=== PATIENT | female | born 1965 | race Caucasian/White ===

== ENCOUNTER 2021-05-24 02:21 | Inpatient (IN) ==
[2021-05-24] MEDS ORDERED: NS 0.9% 1000 ml BAG 1,000 ML IV ONE (02:31)
[2021-05-24] MEDS ORDERED: Iodixanol (CONTRAST) 320 MG/ML 100 ML SDV IV ONE (02:32)
[2021-05-24 02:49] LABS: ABS Basophils 0.1 10^3/ul (0-0.2); ABS Eosinophils 0.1 10^3/ul (0-0.6); ABS Lymphocytes 3.2 10^3/ul (1.0-4.8); ABS Monocytes 1.1 10^3/ul (0-0.8); ABS Neutrophils 6.1 10^3/ul (1.5-7.7); Eosinophil % 1.2 %; Hematocrit 41 % (35-47); Hemoglobin 13.7 g/dL (12.0-16.0); Lymphocyte % 30.2 %; Mean Corpuscular HGB Conc 34 g/dL (31-36); Mean Corpuscular Hemoglobin 33 pg (27-31); Mean Corpuscular Volume 98 fL (80-97); Mean Platelet Volume 9.1 fL (7.4-10.4); Platelet Count 287 10^3/uL (150-450); Red Blood Count 4.13 10^6 /uL (3.70-4.87); Red Cell Distribution Width 13 % (10-15); White Blood Count 10.5 10^3/uL (3.5-10.8)
[2021-05-24 02:58] LABS: Activated Partial Thrombo Time 27.9 seconds (26.0-38.0); INR 1.02 (0.86-1.15)
[2021-05-24 03:07] LABS: Albumin 4.5 g/dL (3.2-5.2); Albumin/Globulin Ratio 1.2 (1-3); Calcium 9.4 mg/dL (8.6-10.3); Globulin 3.7 g/dL (2-4); HDL Cholesterol 73.5 mg/dL; Potassium 3.3 mmol/L (3.5-5.0); Total Bilirubin 0.7 mg/dL (0.2-1.0); Total Protein 8.2 g/dL (6.4-8.9); eGFR CKD-EPI 33.3 (>60)
[2021-05-24 03:09] LABS: Troponin I 0.01 ng/mL (<0.03)
[2021-05-24] MEDS ORDERED: Potassium Chlor 10 meq TAB PO ONE (05:23)
[2021-05-24 05:50] LABS: Urine Appearance Cloudy; Urine Bilirubin Negative (Negative); Urine Blood Negative (Negative); Urine Color Yellow; Urine Glucose Negative (Negative); Urine Ketones Negative (Negative); Urine Nitrite Negative (Negative); Urine Protein Negative (Negative); Urine Specific Gravity 1.027 (1.002-1.030); Urine Urobilinogen Negative (Negative)
[2021-05-24 05:59] LABS: Magnesium 2.3 mg/dL (1.9-2.7)
[2021-05-24 06:12] LABS: Urine Benzodiazepine Screen None Detected (None Detect); Urine Cannabinoids Screen Presumptive Positive (None Detect); Urine Opiates Screen None Detected (None Detect)
[2021-05-24 06:19] LABS: Rapid COVID-19 Molecular Undetected (Undetected)
[2021-05-24 06:45] LABS: TSH Ultra Thyroid Stim Horm 8.6 mcIU/mL (0.34-5.60)
[2021-05-24] MEDS: Enoxaparin 40 MG/0.4 ML SYR SUBCUT SCH (09:28)
[2021-05-24 11:05] LABS: Calcium 9.5 mg/dL (8.6-10.3); Potassium 4.2 mmol/L (3.5-5.0); eGFR CKD-EPI 53.3 (>60)
[2021-05-24 12:30] LABS: Folate > 20.00 ng/mL (5.90-24.80)
[2021-05-24 12:31] LABS: Vitamin B12 1098 pg/mL (180-914)
[2021-05-24] MEDS: Thiamine 100 MG/ML 2 ml VIAL 500 MG in NS 0.9% 250 ml 250 ML IV SCH ×2 (12:51→20:44)
[2021-05-25] MEDS: Thiamine 100 MG/ML 2 ml VIAL 500 MG in NS 0.9% 250 ml 250 ML IV SCH ×2 (03:08→11:59)
[2021-05-25 06:08] LABS: ABS Eosinophils 0.2 10^3/ul (0-0.6); ABS Lymphocytes 2.1 10^3/ul (1.0-4.8); ABS Monocytes 0.7 10^3/ul (0-0.8); ABS Neutrophils 3.1 10^3/ul (1.5-7.7); Eosinophil % 2.5 %; Hematocrit 39 % (35-47); Hemoglobin 13.3 g/dL (12.0-16.0); Lymphocyte % 34.8 %; Mean Corpuscular HGB Conc 34 g/dL (31-36); Mean Corpuscular Hemoglobin 34 pg (27-31); Mean Corpuscular Volume 99 fL (80-97); Mean Platelet Volume 9.6 fL (7.4-10.4); Nucleated Red Blood Cells % 0.1; Platelet Count 224 10^3/uL (150-450); Red Blood Count 3.95 10^6 /uL (3.70-4.87); Red Cell Distribution Width 12 % (10-15); White Blood Count 6.1 10^3/uL (3.5-10.8)
[2021-05-25 06:34] LABS: Albumin 4.1 g/dL (3.2-5.2); Albumin/Globulin Ratio 1.2 (1-3); Calcium 9.3 mg/dL (8.6-10.3); Globulin 3.4 g/dL (2-4); Magnesium 2.1 mg/dL (1.9-2.7); Potassium 4.4 mmol/L (3.5-5.0); Total Bilirubin 1.2 mg/dL (0.2-1.0); Total Protein 7.5 g/dL (6.4-8.9); eGFR CKD-EPI 61.3 (>60)
[2021-05-25] MEDS: Enoxaparin 40 MG/0.4 ML SYR SUBCUT SCH (08:33)
[2021-05-25] MEDS: Multivitamins/Minerals TAB PO SCH (08:34)
[2021-05-25] MEDS ORDERED: Aspirin EC 325 mg TAB.EC PO SCH (09:00)
[2021-05-25] MEDS ORDERED: hydrALAZINE 20 mg/ml 1 ML Vial IV IV SLOW PU ONE (22:23)
[2021-05-25] MEDS ORDERED: hydrALAZINE 20 mg/ml 1 ML Vial IV IV SLOW PU PRN (22:42)
[2021-05-26 05:19] LABS: ABS Basophils 0.1 10^3/ul (0-0.2); ABS Eosinophils 0.2 10^3/ul (0-0.6); ABS Lymphocytes 2.1 10^3/ul (1.0-4.8); ABS Monocytes 0.8 10^3/ul (0-0.8); ABS Neutrophils 3.6 10^3/ul (1.5-7.7); Eosinophil % 2.9 %; Hematocrit 39 % (35-47); Hemoglobin 13.4 g/dL (12.0-16.0); Lymphocyte % 30.9 %; Mean Corpuscular HGB Conc 34 g/dL (31-36); Mean Corpuscular Hemoglobin 34 pg (27-31); Mean Corpuscular Volume 99 fL (80-97); Nucleated Red Blood Cells % 0.1; Platelet Count 234 10^3/uL (150-450); Red Blood Count 3.99 10^6 /uL (3.70-4.87); Red Cell Distribution Width 13 % (10-15); White Blood Count 6.7 10^3/uL (3.5-10.8)
[2021-05-26 05:39] LABS: Calcium 9.8 mg/dL (8.6-10.3); Potassium 3.7 mmol/L (3.5-5.0)
[2021-05-26] MEDS: Enoxaparin 40 MG/0.4 ML SYR SUBCUT SCH (08:19)
[2021-05-26] MEDS: Multivitamins/Minerals TAB PO SCH (08:19)
[2021-05-26] MEDS ORDERED: Aspirin EC 81 mg TAB.EC (enteric coated) PO SCH (09:00)
[2021-05-26 11:26] VITALS: BP 154/80
== END 2021-05-26 13:43 | disposition home or self-care (01) | DRG 65 ==
LOC: ED 02:21 → EDHOLD 02:21 → SUATTDRO 05:26 → MEDTELE 07:48
PROVIDERS: ADMIT Internal Medicine; ATTEND Internal Medicine

== ENCOUNTER 2021-06-03 21:21 | Observation (INO) ==
[2021-06-03] MEDS ORDERED: NS 0.9% 1000 ml BAG 1,000 ML IV ONE (21:28)
[2021-06-03 21:55] LABS: ABS Eosinophils 0.1 10^3/ul (0-0.6); ABS Lymphocytes 2.3 10^3/ul (1.0-4.8); ABS Monocytes 0.7 10^3/ul (0-0.8); ABS Neutrophils 1.8 10^3/ul (1.5-7.7); Eosinophil % 1.3 %; Hematocrit 41 % (35-47); Hemoglobin 14.1 g/dL (12.0-16.0); Lymphocyte % 47.7 %; Mean Corpuscular HGB Conc 35 g/dL (31-36); Mean Corpuscular Hemoglobin 34 pg (27-31); Mean Corpuscular Volume 97 fL (80-97); Nucleated Red Blood Cells % 0.1; Platelet Count 278 10^3/uL (150-450); Red Cell Distribution Width 12 % (10-15); White Blood Count 4.9 10^3/uL (3.5-10.8)
[2021-06-03 22:04] LABS: Activated Partial Thrombo Time 30.6 seconds (26.0-38.0); INR 1.07 (0.86-1.15)
[2021-06-03 22:13] LABS: ALT 156 U/L (7-52); AST 89 U/L (13-39); Albumin 4.1 g/dL (3.2-5.2); Albumin/Globulin Ratio 1.1 (1-3); Alkaline Phosphatase 57 U/L (35-149); Anion Gap 11 mmol/L (2-11); Blood Urea Nitrogen 67 mg/dL (6-24); CO2 Carbon Dioxide 23 mmol/L (22-32); Calcium 9.8 mg/dL (8.6-10.3); Chloride 99 mmol/L (101-111); Cholesterol 147 mg/dL; Globulin 3.7 g/dL (2-4); Glucose 128 mg/dL (70-100); HDL Cholesterol 26.4 mg/dL; LDL Cholesterol 90 mg/dL; Potassium 3.9 mmol/L (3.5-5.0); Sodium 133 mmol/L (135-145); Total Protein 7.8 g/dL (6.4-8.9); Triglycerides 155 mg/dL; eGFR CKD-EPI 17.6 (>60)
[2021-06-03 22:14] LABS: Troponin I 0.01 ng/mL (<0.03)
[2021-06-03 23:02] LABS: Alcohol, S < 13 mg/dL (<13)
[2021-06-04] MEDS ORDERED: Enoxaparin 40 MG/0.4 ML SYR SUBCUT SCH (02:00)
[2021-06-04] MEDS ORDERED: NS 0.9% 1000 ml BAG 1,000 ML IV SCH (04:45)
[2021-06-04 05:50] LABS: ABS Basophils 0.1 10^3/ul (0-0.2); ABS Lymphocytes 1.8 10^3/ul (1.0-4.8); ABS Monocytes 0.5 10^3/ul (0-0.8); ABS Neutrophils 2.8 10^3/ul (1.5-7.7); Eosinophil % 0.2 %; Hematocrit 36 % (35-47); Hemoglobin 12.4 g/dL (12.0-16.0); Mean Corpuscular HGB Conc 34 g/dL (31-36); Mean Corpuscular Hemoglobin 33 pg (27-31); Mean Corpuscular Volume 98 fL (80-97); Mean Platelet Volume 10.1 fL (7.4-10.4); Platelet Count 217 10^3/uL (150-450); Red Cell Distribution Width 12 % (10-15); White Blood Count 5.2 10^3/uL (3.5-10.8)
[2021-06-04 06:08] LABS: Calcium 8.2 mg/dL (8.6-10.3); Potassium 3.9 mmol/L (3.5-5.0)
[2021-06-04] MEDS: Multivitamins/Minerals TAB PO SCH (08:31)
[2021-06-04] MEDS: Aspirin EC 81 mg TAB.EC (enteric coated) PO SCH (08:31)
[2021-06-04] MEDS ORDERED: Lactated Ringers 1000 ml BAG 1,000 ML IV ONE (15:20)
[2021-06-04] MEDS: Enoxaparin 40 MG/0.4 ML SYR SUBCUT SCH (18:12)
[2021-06-04] MEDS: NS 0.9% 1000 ml BAG 1,000 ML IV SCH (20:10)
[2021-06-05] MEDS: NS 0.9% 1000 ml BAG 1,000 ML IV SCH ×2 (06:09→21:14)
[2021-06-05 06:49] LABS: Calcium 9.1 mg/dL (8.6-10.3); Potassium 4.2 mmol/L (3.5-5.0)
[2021-06-05] MEDS: Aspirin EC 81 mg TAB.EC (enteric coated) PO SCH (08:41)
[2021-06-05] MEDS: Multivitamins/Minerals TAB PO SCH (08:41)
[2021-06-05] MEDS ORDERED: Flu vaccine *QUAD* 2021-22* 0.5 ML SYRINGE IM ONE (10:00)
[2021-06-05] MEDS: Enoxaparin 40 MG/0.4 ML SYR SUBCUT SCH (20:20)
[2021-06-06 08:14] VITALS: BP 132/78
[2021-06-06] MEDS: Aspirin EC 81 mg TAB.EC (enteric coated) PO SCH (08:16)
[2021-06-06] MEDS: Multivitamins/Minerals TAB PO SCH (08:16)
== END 2021-06-06 12:00 | disposition home or self-care (01) ==
LOC: ED 21:21 → EDHOLD 21:21 → SUATTDRO 06-04 01:24 → MED 06-04 09:26
PROVIDERS: ADMIT Internal Medicine; ATTEND Family Medicine

== ENCOUNTER 2023-12-30 13:36 | Observation (INO) ==
[2023-12-30] MEDS: Lactated Ringers 1000 ml BAG 1,000 ML IV ONE (14:56)
[2023-12-30] MEDS ORDERED: LORazepam 2 MG/ML 1 mL Syringe IV ONE (14:57)
[2023-12-30 15:00] LABS: ABS Lymphocytes 1.4 10^3/uL (1.0-4.8); ABS Monocytes 0.7 10^3/uL (0.0-0.9); ABS Neutrophils 4.2 10^3/uL (1.5-7.6); Eosinophil % 0.4 %; Hematocrit 34.5 % (35-45); Hemoglobin 11.9 g/dL (11.5-14.3); Lymphocyte % 22.5 %; Mean Corpuscular Hemoglobin 33.2 pg (27-33); Mean Corpuscular Hgb Conc 34.4 g/dL (31-36); Mean Corpuscular Volume 96.5 fL (80-97); Mean Platelet Volume 8.8 fL (7.5-11.2); Platelet Count 189 10^3/uL (150-450); Red Blood Count 3.57 10^6/uL (3.63-4.92); Red Cell Distribution Width 13.2 % (12-17); White Blood Count 6.4 10^3/uL (3.8-11.8)
[2023-12-30 15:46] LABS: ALT 38 U/L (7-52); AST 80 U/L (13-39); Albumin 4.3 g/dL (3.2-5.2); Albumin/Globulin Ratio 1.3 (1-3); Alcohol, S < 13 mg/dL (<13); Alkaline Phosphatase 80 U/L (35-149); Anion Gap 13 mmol/L (2-16); Blood Urea Nitrogen 16 mg/dL (6-24); CO2 Carbon Dioxide 26 mmol/L (22-32); Calcium 9.1 mg/dL (8.6-10.3); Chloride 100 mmol/L (101-111); Creatine Kinase 804 U/L (10-223); Creatinine, Serum 0.76 mg/dL (0.51-0.95); Globulin 3.4 g/dL (2-4); Glucose 101 mg/dL (70-100); Potassium 3.2 mmol/L (3.5-5.0); Sodium 139 mmol/L (135-145); Total Bilirubin 2.5 mg/dL (0.2-1.0); Total Protein 7.7 g/dL (6.4-8.9); eGFR CKD-EPI 89.7 (>60)
[2023-12-30] MEDS: LORazepam 2 mg VIAL 1 ml IV PUSH ONE ×2 (15:47→18:00)
[2023-12-30 15:53] LABS: HCG Pregnancy 1.29 mIU/mL
[2023-12-30 15:54] LABS: Urine Appearance Clear; Urine Bilirubin Negative (Negative); Urine Blood Negative (Negative); Urine Color Yellow; Urine Glucose Negative (Negative); Urine Ketones 2+ (Negative); Urine Nitrite Negative (Negative); Urine Protein Trace (Negative); Urine Specific Gravity 1.021 (1.002-1.030); Urine Urobilinogen 3+ (Negative)
[2023-12-30 16:21] LABS: Urine Benzodiazepine Screen None Detected (None Detect); Urine Cannabinoids Screen Presumptive Positive (None Detect); Urine Opiates Screen None Detected (None Detect)
[2023-12-30] MEDS: Potassium EFFERVES 25 meq TAB PO ONE (17:16)
[2023-12-30] MEDS ORDERED: Lorazepam PYXIS KEY PRN (17:16)
[2023-12-30] MEDS ORDERED: Ondansetron 4 mg VIAL 2 MG/ML 2 ml VIAL IV PRN (23:07)
[2023-12-31] MEDS: Thiamine 100 MG/ML 2 ml VIAL (200 mg) IM ONE (00:12)
[2023-12-31 00:27] LABS: Magnesium 1.6 mg/dL (1.9-2.7)
[2023-12-31] MEDS: Magnesium Sulf 4 GM/100 ML IV 4,000 MG/100 ML BAG IVPB ONE (02:42)
[2023-12-31 05:59] LABS: ABS Eosinophils 0.1 10^3/uL (0.0-0.5); ABS Lymphocytes 1.8 10^3/uL (1.0-4.8); ABS Monocytes 0.7 10^3/uL (0.0-0.9); ABS Neutrophils 2.2 10^3/uL (1.5-7.6); ABS Nucleated RBC 0.01 10^3/ul; Eosinophil % 2.8 %; Hematocrit 31.7 % (35-45); Hemoglobin 10.6 g/dL (11.5-14.3); Lymphocyte % 36.8 %; Mean Corpuscular Hemoglobin 32.3 pg (27-33); Mean Corpuscular Hgb Conc 33.4 g/dL (31-36); Mean Corpuscular Volume 96.6 fL (80-97); Nucleated Red Blood Cells % 0.2 %/100WBC (0.0-0.8); Platelet Count 164 10^3/uL (150-450); Red Blood Count 3.28 10^6/uL (3.63-4.92); Red Cell Distribution Width 13.6 % (12-17); White Blood Count 4.9 10^3/uL (3.8-11.8)
[2023-12-31 07:34] LABS: Albumin 3.5 g/dL (3.2-5.2); Albumin/Globulin Ratio 1.2 (1-3); Calcium 8.4 mg/dL (8.6-10.3); Creatinine, Serum 0.87 mg/dL (0.51-0.95); Globulin 2.9 g/dL (2-4); Magnesium 3.5 mg/dL (1.9-2.7); Potassium 3.5 mmol/L (3.5-5.0); Total Bilirubin 2.1 mg/dL (0.2-1.0); Total Protein 6.4 g/dL (6.4-8.9); eGFR CKD-EPI 76.2 (>60)
[2023-12-31] MEDS: Multivitamins/Minerals TAB PO SCH (08:50)
[2023-12-31] MEDS: Aspirin EC 81 mg TAB.EC (enteric coated) PO SCH (14:49)
[2024-01-01 05:50] LABS: Creatinine, Serum 0.73 mg/dL (0.51-0.95); Magnesium 1.9 mg/dL (1.9-2.7); Potassium 3.7 mmol/L (3.5-5.0); eGFR CKD-EPI 94.1 (>60)
[2024-01-01 10:07] VITALS: BP 144/72
== END 2024-01-01 13:20 | disposition home or self-care (01) ==
LOC: EDHOLD 13:36 → ED 13:36 → SUATTDRO 22:50 → MEDTELE 12-31 11:19
PROVIDERS: ADMIT Internal Medicine; ATTEND Hospitalist